=== PATIENT | female | born 1935 | race Caucasian/White ===

== ENCOUNTER 2016-05-12 07:23 | Inpatient (IN) | payer OTHER, MEDICAID ==
[~2016-05-12] VITALS: Ht 152.4 cm; Wt 79.4 kg
[2016-05-12 07:28] VITALS: BP 189/78
--- NOTE | 2016-05-12 07:28 | NUR ---
80/F BIBA FROM HOME C/O RIGHT FLANK PAIN X YESTERDAY. PT STATES STABBING PAIN NON RADIATING AT THIS TIME. DENIES N/V/D; SKIN IS PINK/WARM/DRY; AAOX4 AND UNSTEADY GAIT; LUNGS CLEAR BL; HR EVEN AND REGULAR; PT DENIES ANY FEVER, CP, SOB, OR COUGH AT THIS TIME; PATIENT STATES PAIN OF 8/10 AT THIS TIME; BP 189/78 AT THIS TIME; PATIENT POSITIONED FOR COMFORT; HOB ELEVATED; BEDRAILS UP X2; BED DOWN. ER MD MADE AWARE OF PT STATUS.
[2016-05-12] MEDS ORDERED: ORETIC25 MG PO (07:37)
[2016-05-12] MEDS ORDERED: TENORMIN25 MG PO (07:37)
[2016-05-12] MEDS ORDERED: ASPIRIN ADULT L81 M2 PO (07:37)
[2016-05-12] MEDS ORDERED: LISINOPRIL40 M1 PO (07:37)
[2016-05-12] MEDS ORDERED: NACL 0.9% 1,000 ML IV ONE (07:50)
[2016-05-12] MEDS ORDERED: KETOROLAC 30 MG/ML VIAL IVP ONE (07:55)
--- NOTE | 2016-05-12 08:00 | NUR ---
LAB AT BEDSIDE
--- NOTE | 2016-05-12 08:06 | NUR ---
PT TAKEN TO CT VIA [facility] ACCOMPANIED BY ABEL CARLOS.
[2016-05-12] MEDS ORDERED: NACL 0.9% 2,500 ML IV ONE (09:10)
[2016-05-12] MEDS ORDERED: LEVOFLOXACIN 500 MG/D5W PREMIX 100 ML IV ONE ×2 (10:15→10:20)
[2016-05-12] MEDS ORDERED: ONDANSETRON 4 MG/2 ML VIAL IVP PRN (10:15)
[2016-05-12] MEDS ORDERED: ACETAMINOPHEN 325 MG TAB PO PRN (10:15)
[2016-05-12] MEDS ORDERED: HYDROcodone/APAP 5/325 MG 1 TAB TAB PO PRN (10:15)
--- NOTE | 2016-05-12 10:35 | NUR ---
GAVE REPORT TO NELL SCHULTZ
--- NOTE | 2016-05-12 10:39 | NUR ---
Patient will be admitted to care of DR THACKER. Admited to [facility]. Will go to room 106 B. Belongings list completed. Report to NELL SCHULTZ.
[2016-05-12 10:50] VITALS: BP 173/73
--- NOTE | 2016-05-12 10:50 | NUR ---
ADMITTED FROM ER WITH C/O RIGHT FLANK PAIN Admitted from ER, with chief complaint of , 80 y/o ,Female, Cooperative, oriented to call light, bed, phone,television, bathroom, smoking policy, visiting hours, procedures, ID bracelet on. Belongings list checked. Addendum: 05/12/16 at 1316 by Daniel Pemberton RN INCORRECT ENTRY ABOVE CORRECT ENTRY: ADMITTED FROM ER WITH C/O RIGHT FLANK PAIN, NO N/V/D OR FEVER. DX STOMACH PAIN, R/O CHOLECYSTITIS, UTI. 80YO F, COOPERATIVE, AOX4, KYRGYZ SPEAKING ONLY. VS NOTED. NO S/S OF ACUTE DISTRESS. IV SITE ASYMPTOMATIC, PATENT AND INTACT, IV BOLUS INFUSING WELL. ADMISSION ASSESSMENT, HISTORY AND PLAN OF CARE DISCUSSED AND REVIEWED WITH PT THROUGH TRACTOR CRANE OPERATOR PHONE, [place], AND WITH PT AT BEDSIDE. PT VERBALIZES UNDERSTANDING. PT DENIES PAIN AT THIS TIME, PT REPORTS PAIN WITH ACTIVITY. PT ORIENTED TO CALL LIGHT, BED, PHONE, TELEVISION, BATHROOM, SMOKING POLICY, VISITING HOURS AND ID BRACELET ON. BELONGINGS LIST CHECKED. SAFETY MEASURES ENSURED.
[2016-05-12] MEDS ORDERED: HYDROCHLOROTHIAZIDE 25 MG TAB PO SCH (11:19)
[2016-05-12] MEDS ORDERED: ATENOLOL 25 MG TAB PO SCH (11:19)
[2016-05-12] MEDS ORDERED: LISINOPRIL 20 MG TAB PO SCH (11:19)
[2016-05-12] MEDS: NACL 0.9% 1,000 ML IV SCH ×2 (12:22→19:13)
--- NOTE | 2016-05-12 15:30 | NUR ---
DR DE SOUZA MADE AWARE OF CONSULTATION, STATES HE WILL SEE PATIENT TODAY.
[2016-05-12 16:00] VITALS: BP 152/84
--- NOTE | 2016-05-12 18:00 | NUR ---
PT TOLERATING DIET WELL. NO S/S DISTRESS.
--- NOTE | 2016-05-12 19:15 | NUR ---
ENDORSED PLAN OF CARE TO [employer]. CONDITION STABLE.
--- NOTE | 2016-05-12 19:30 | NUR ---
RECEIVED REPORT FROM EUGENIA/NELL SCHULTZ, AT BEDSIDE. INITIAL ASSESSMENT AND BODY CHECK DONE. PATIENT AAO X 4, ABLE TO FOLLOW COMMAND AND MAKE NEEDS KNOWN AND AMBULATORY. PATIENT CURRENTLY LYING DOWN ON THE BED AND TALKING TO HER . NO S/S OF DISTRESS OR SOB NOTED. SKIN WARM/DRY TO TOUCH WITH NORMAL COLOR AND INTACT. DENIED OF ABDOMINAL PAIN AT THIS TIME. DISCUSSED PLAN OF CARE, PAIN MANAGEMENT AND MEDICATION REGIMEN WITH PATIENT AND PATIENT VERBALIZED UNDERSTANDING. PLACED PATIENT ON SAFETY/FALL PRECAUTIONS AND WILL CONTINUE TO MONITOR. CALL LIGHT LEFT WITHIN REACH.
[2016-05-12 20:00] VITALS: BP 152/59
--- NOTE | 2016-05-12 20:10 | NUR ---
DR. DE SOUZA HERE TO SEE THE PATIENT AND NO NEW ORDER GIVEN.
[2016-05-12] MEDS: metroNIDAZOLE 500 MG/NS PREMIX 100 ML IV SCH (20:34)
--- NOTE | 2016-05-12 21:00 | NUR ---
ADMINISTERED DUE MEDICATIONS MD'S ORDERED WITH EDUCATION GIVEN. PATIENT COMPLYING WITH MEDICATIONS AND TOLERATED WELL. KEPT PATIENT IN COMFORTABLE POSITION/WARM AND WILL CONTINUE TO MONITOR.
--- NOTE | 2016-05-12 21:58 | NUR ---
ROUNDS MADE, SEEN PATIENT RESTING COMFORTABLY IN BED WITHOUT S/S OF DISTRESS NOTED. WILL CONTINUE TO MONITOR.
[2016-05-13] VITALS (7 sets, daily range): BP systolic 133–179; BP diastolic 64–81
--- NOTE | 2016-05-13 00:37 | NUR ---
ASSISTED PATIENT TO THE RESTROOM AND BACK TO BED SAFELY. PATIENT TOLERATED ACTIVITY WELL AND REMAINED IN STABLE CONDITION. NO ANY COMPLAINT MADE. WILL CONTINUE TO MONITOR.
--- NOTE | 2016-05-13 03:40 | NUR ---
PATIENT IS CLINICALLY STABLE AND NO APPARENT DISTRESS NOTED. WILL CONTINUE TO MONITOR.
[2016-05-13] MEDS: metroNIDAZOLE 500 MG/NS PREMIX 100 ML IV SCH ×3 (04:16→20:35)
--- NOTE | 2016-05-13 07:23 | NUR ---
ENDORSED PLAN OF CARE TO NELL SCHULTZ, AT BEDSIDE. PATIENT RESTED WELL THROUGHOUT THE SHIFT AND REMAINED IN STABLE CONDITION WITHOUT S/S OF DISTRESS NOTED.
--- NOTE | 2016-05-13 07:30 | NUR ---
RECEIVED REPORT FROM NIGHT NURSE. AOX4, PT SITTING IN BED. NO SOB, CHEST PAIN OR S/S OF DISTRESS. TOOTH CUTTER IN PLACE. IV SITE, ASYMPTOMATIC, PATENT AND INTACT. IV FLUIDS INFUSING WELL. PLAN OF CARE REVIEWED AND DISCUSSED WITH PT, VERBALIZES UNDERSTANDING SAFETY MEASURES ENSURED, CALL LIGHT WITHIN REACH. WILL CONTINUE TO MONITOR.
--- NOTE | 2016-05-13 07:32 | NUR ---
PATIENT HAS BEEN SCREENED AND CATEGORIZED MODERATE NUTRITION RISK. PATIENT WILL BE SEEN WITHIN 3-5 DAYS OF ADMISSION. 05/15/16-05/17/[address]
[2016-05-13] MEDS: ECOTRIN 81 MG TABEC PO SCH (08:31)
[2016-05-13] MEDS: LISINOPRIL 20 MG TAB PO SCH (08:32)
[2016-05-13] MEDS: ATENOLOL 25 MG TAB PO SCH (08:33)
[2016-05-13] MEDS: ATORVASTATIN 20 MG TAB PO SCH (08:34)
[2016-05-13] MEDS: HYDROCHLOROTHIAZIDE 25 MG TAB PO SCH (08:34)
[2016-05-13] MEDS: LEVOFLOXACIN 250 MG/D5 PREMIX 50 ML IV SCH (08:36)
--- NOTE | 2016-05-13 08:41 | NUR ---
PT SITTING IN BED COMFORTABLY. ADMINISTERED MEDICATIONS WITH EDUCATION, PT TOLERATED WELL. IV SITE INFUSING WELL. SAFETY MEASURES ENSURED.
[2016-05-13] MEDS ORDERED: NON-FORMULARY ITEM (Lisinopril 40 MG) PO SCH (09:00)
--- NOTE | 2016-05-13 09:10 | NUR ---
CT CHEST DONE, PT RETURNED TO ROOM IN STABLE CONDITION.
--- NOTE | 2016-05-13 13:20 | NUR ---
MEDICATION ADMINISTERED WITH MEDICATION, PT TOLERATED WELL. IV SITE INFUSING WELL. SAFETY MEASURES ENSURED.
--- NOTE | 2016-05-13 13:40 | NUR ---
INITIAL REVIEW FAXED TO [facility] [phone] PHONE ALEXX [phone]
[2016-05-13] MEDS: NACL 0.9% 1,000 ML IV SCH ×2 (14:48→18:12)
--- NOTE | 2016-05-13 18:00 | NUR ---
DISCUSSED AND REVIEWED PLAN OF CARE WITH PT, AT BEDSIDE; BOTH VERBALIZE UNDERSTANDING AND COMPLIANCE.
--- NOTE | 2016-05-13 19:30 | NUR ---
ENDORSED PLAN OF CARE TO OFFICE CLERK ROUTINE. CONDITION STABLE.
--- NOTE | 2016-05-13 19:30 | NUR ---
RECEIVED REPORT FROM NELL SCHULTZ, AT BEDSIDE. INITIAL ASSESSMENT AND BODY CHECK DONE. PATIENT AAO X 4, ABLE TO FOLLOW COMMAND AND MAKE NEEDS KNOWN AND AMBULATORY. PATIENT CURRENTLY SITTING UP ON THE BED. NO S/S OF DISTRESS OR SOB NOTED. SKIN WARM/DRY TO TOUCH WITH NORMAL COLOR AND INTACT. DENIED OF ANY PAIN/DISCOMFORT AT THIS TIME. DISCUSSED PLAN OF CARE, PAIN MANAGEMENT AND MEDICATION REGIMEN WITH PATIENT AND PATIENT VERBALIZED UNDERSTANDING. PLACED PATIENT ON SAFETY PRECAUTIONS AND WILL CONTINUE TO MONITOR. CALL LIGHT LEFT WITHIN REACH.
--- NOTE | 2016-05-13 21:35 | NUR ---
ADMINISTERED DUE MEDICATIONS MD'S ORDERED WITH EDUCATION GIVEN. PATIENT COMPLYING WITH MEDICATIONS AND TOLERATED WELL. RESTED COMFORTABLY IN BED WITH ALL NEEDS ATTENDED. WILL CONTINUE TO MONITOR.
--- NOTE | 2016-05-14 00:10 | NUR ---
ROUNDS MADE, SEEN PATIENT ASLEEP QUIETLY IN BED WITH EVEN AND UNLABORED RESPIRATORY RATE. NO CHANGE IN CONDITION NOTED. WILL CONTINUE TO MONITOR.
--- NOTE | 2016-05-14 02:04 | NUR ---
PATIENT RESTED WELL WITHOUT APPARENT DISTRESS NOTED. WILL CONTINUE TO MONITOR.
[2016-05-14 04:00] VITALS: BP 158/71
[2016-05-14] MEDS: metroNIDAZOLE 500 MG/NS PREMIX 100 ML IV SCH ×3 (04:26→13:00)
--- NOTE | 2016-05-14 04:56 | NUR ---
PATIENT IS CLINICALLY STABLE WITH UNCHANGED V/S. WILL CONTINUE TO MONITOR.
--- NOTE | 2016-05-14 07:12 | NUR ---
ENDORSED PLAN OF CARE TO NELL MINER, AT BEDSIDE. PATIENT REMAINED IN STABLE CONDITION AND NO APPARENT DISTRESS NOTED.
--- NOTE | 2016-05-14 07:13 | NUR ---
RECEIVED REPORT FROM NELL KAYE. PT IS SLEEPING AT THIS TIME BUT EASILY AWAKEN, AAO X4, SKIN INTACT IV ON LEFT HAND PATENT AND INTACT INFUSING FLUID WELL, INITIAL ASSESSMENT DONE, NO S/S OF RESPIRATORY DISTRESS OR DISCOMFORT NOTED, DISCUSSED PLAN OF CARE, PT VERBALIZED UNDERSTANDING, SAFETY/FALL PRECAUTION ENFORCED, CALL LIGHT WITHIN REACH, WILL CONTINUE TO MONITOR.
[2016-05-14 08:00] VITALS: BP 159/77
[2016-05-14] MEDS: HYDROCHLOROTHIAZIDE 25 MG TAB PO SCH (09:05)
[2016-05-14] MEDS: ECOTRIN 81 MG TABEC PO SCH (09:05)
[2016-05-14] MEDS: ATORVASTATIN 20 MG TAB PO SCH (09:05)
[2016-05-14] MEDS: LEVOFLOXACIN 250 MG/D5 PREMIX 50 ML IV SCH (09:05)
[2016-05-14] MEDS: ATENOLOL 25 MG TAB PO SCH (09:05)
[2016-05-14] MEDS: LISINOPRIL 20 MG TAB PO SCH (09:05)
--- NOTE | 2016-05-14 09:09 | NUR ---
DUE MEDS GIVEN, PT TOLERATED WELL, CALL LIGHT WITHIN REACH, FAMILY MEMBER AT BEDSIDE, WILL CONTINUE TO MONITOR.
--- NOTE | 2016-05-14 11:15 | NUR ---
PT IS RESTING ON BED TALKING TO FAMILY MEMBER AT BEDSIDE, ALL NEEDS MET AT THIS TIME, CALL LIGHT WITHIN REACH, WILL CONTINUE TO MONITOR.
[2016-05-14 12:00] VITALS: BP 149/73
--- NOTE | 2016-05-14 12:30 | NUR ---
DUE IVPB FLAGYL NOT GIVEN, CURRENT IV IS INFILTRATED AND PT REFUSED TO GET NEW IV, DR. BARBOZA MADE AWARE.
[2016-05-14] MEDS ORDERED: FLORASTOR250 MG PO (12:44)
[2016-05-14] MEDS ORDERED: ATORVASTATIN CA20 MG PO (12:44)
[2016-05-14] MEDS ORDERED: LEVAQUIN500 M1 PO (12:44)
--- NOTE | 2016-05-14 12:46 | NUR ---
CM NOTE CONCURRENT REVIEW FAXED TO [facility] / FAX# [phone], ATTN: ALEXX #[phone]
--- NOTE | 2016-05-14 14:40 | NUR ---
DISCHARGE INSTRUCTIONS AND PRESCRIPTION GIVEN, PT VERBALIZED UNDERSTANDING, REMOVED TELE, ID WRISTBAND AND IV, CATHETER TIP INTACT, ALL ANSWERS QUESTIONED. PT LEFT THE UNIT AMBULATING ACCOMPANIED BY SPOUSE, PT STABLE UPON DISCHARGE.
== END 2016-05-14 14:40 | disposition home or self-care (01) | DRG 444 ==
LOC: MED 07:23 → MTU 10:14
PROVIDERS: ADMIT Family Medicine; ATTEND Family Medicine
DX: K80.20 Calculus of gallbladder without cholecystitis without obstruction (principal); N17.0 Acute kidney failure with tubular necrosis; N39.0 Urinary tract infection, site not specified; E44.0 Moderate protein-calorie malnutrition; I16.0 Hypertensive urgency; E66.9 Obesity, unspecified; R91.1 Solitary pulmonary nodule; I10 Essential (primary) hypertension; E78.2 Mixed hyperlipidemia; D25.9 Leiomyoma of uterus, unspecified; Z68.34 Body mass index [BMI] 34.0-34.9, adult; Z79.82 Long term (current) use of aspirin; Z79.899 Other long term (current) drug therapy

== ENCOUNTER 2020-02-29 11:46 | Observation (INO) | payer OTHER, MEDICAID, SELFPAY ==
[~2020-02-29] VITALS: Ht 152.4 cm; Wt 49.9 kg
[~2020-02-29 11:46] MED LIST: ASPI-1856 PO; ATEN25TA7 PO; ATOR20TA40 PO; FLOR250 PO; HYDR-4004 PO; LEVO500T2 PO; LISI40TA8 PO
[2020-02-29 11:52] VITALS: BP 134/84
[2020-02-29 12:36] LABS: BASOPHILS % (AUTO) 0.5 % (0.0-2.0); EOSINOPHILS # (AUTO) 0.1 K/uL (0-0.4); EOSINOPHILS % (AUTO) 0.9 % (0.0-4.0); HEMATOCRIT 37.7 % (36-48); HEMOGLOBIN 12.3 g/dL (12.0-16.0); LYMPHOCYTES % (AUTO) 10.4 % (20.5-51.1); MEAN CORPUSCULAR HEMOGLOBIN 29 pg (27-31); MEAN CORPUSCULAR HGB CONC 33 g/dL (33-37); MEAN CORPUSCULAR VOLUME 89.3 fL (80-94); MONOCYTES # (AUTO) 0.4 K/uL (0.8-1.0); MONOCYTES % (AUTO) 4.8 % (1.7-9.3); NEUTROPHILS # (AUTO) 7.7 K/uL (1.8-7.7); NEUTROPHILS % (AUTO) 83.4 % (42.2-75.2); PLATELET COUNT (AUTO) 359 K/uL (140-450); RED BLOOD CELL COUNT(AUTO) 4.22 MIL/uL (4.20-5.40); RED CELL DISTRIBUTION WIDTH 14.2 % (11.6-13.7); WHITE BLOOD COUNT (AUTO) 9.2 K/uL (4.8-10.8)
[2020-02-29 12:51] LABS: ALBUMIN 2.3 g/dL (3.4-5.0); ASPARTATE AMINOTRANSFERASE 31 U/L (15-37); CHLORIDE 104 mmol/L (98-107); CREATININE 1.3 mg/dL (0.6-1.3); GLUCOSE 171 mg/dL (74-106); POTASSIUM 5.2 mmol/L (3.5-5.1); SODIUM SERUM 138 mmol/L (136-145); TOTAL BILIRUBIN 0.5 mg/dL (0.0-1.0); UREA NITROGEN, BLOOD 28 mg/dL (7-18)
[2020-02-29 12:57] LABS: PROTHROMBIN TIME 9.8 secs (10.8-13.4)
[2020-02-29 13:04] LABS: CARBON DIOXIDE 27.3 mmol/L (21-32)
[2020-02-29 13:38] LABS: APPEARANCE,URINE SL CLOUDY (CLEAR); BILIRUBIN,URINE NEGATIVE (NEGATIVE); BLOOD, URINE NEGATIVE (NEGATIVE); COLOR,URINE ORANGE (YELLOW); LEUKOCYTE ESTERASE ,URINE NEGATIVE (NEGATIVE); NITRITE, URINE POSITIVE (NEGATIVE); UGLUCOSE NEGATIVE (NEGATIVE)
[2020-02-29] MEDS ORDERED: NACL 0.9% 1,000 ML IV ONE (14:05)
[2020-02-29] MEDS ORDERED: cefTRIAXone 1,000 MG VIAL ONE (15:16)
[2020-02-29 15:56] LABS: FIBRINOGEN 277 mg/dL (200-400)
[2020-02-29 16:51] LABS: D-DIMER 938 ng/ml (0-400)
[2020-02-29] MEDS ORDERED: ONDANSETRON 4 MG/2 ML VIAL IVP PRN (17:30)
[2020-02-29] MEDS ORDERED: LEVOFLOXACIN 500 MG/D5W PREMIX 100 ML IV SCH ×2 (17:30→21:00)
[2020-02-29] MEDS: NACL 0.9% 1,000 ML IV SCH (19:00)
[2020-02-29 20:38] VITALS: BP 146/86
[2020-03-01] MEDS: NACL 0.9% 1,000 ML IV SCH (06:30)
[2020-03-01 06:31] LABS: BASOPHILS % (AUTO) 0.5 % (0.0-2.0); EOSINOPHILS # (AUTO) 0.1 K/uL (0-0.4); EOSINOPHILS % (AUTO) 1.8 % (0.0-4.0); HEMATOCRIT 36.1 % (36-48); LYMPHOCYTES # (AUTO) 1.1 K/uL (2.5-16.5); LYMPHOCYTES % (AUTO) 14.8 % (20.5-51.1); MEAN CORPUSCULAR HEMOGLOBIN 29 pg (27-31); MEAN CORPUSCULAR HGB CONC 33 g/dL (33-37); MONOCYTES # (AUTO) 0.5 K/uL (0.8-1.0); MONOCYTES % (AUTO) 6.5 % (1.7-9.3); NEUTROPHILS # (AUTO) 5.7 K/uL (1.8-7.7); NEUTROPHILS % (AUTO) 76.4 % (42.2-75.2); PLATELET COUNT (AUTO) 344 K/uL (140-450); RED CELL DISTRIBUTION WIDTH 14.2 % (11.6-13.7); WHITE BLOOD COUNT (AUTO) 7.5 K/uL (4.8-10.8)
[2020-03-01 06:55] LABS: CARBON DIOXIDE 25.5 mmol/L (21-32); CHLORIDE 103 mmol/L (98-107); CREATININE 1.1 mg/dL (0.6-1.3); GLUCOSE 88 mg/dL (74-106); POTASSIUM 3.5 mmol/L (3.5-5.1); SODIUM SERUM 136 mmol/L (136-145); UREA NITROGEN, BLOOD 21 mg/dL (7-18)
[2020-03-01] MEDS ORDERED: ENOXAPARIN 40 MG/0.4 ML SYR SUBQ SCH (09:00)
[2020-03-01] MEDS ORDERED: ENOXAPARIN 30 MG/0.3 ML SYR SUBQ SCH (09:00)
[2020-03-01 10:30] VITALS: BP 158/78
[2020-03-01 16:28] VITALS: BP 136/72
[2020-03-01 16:33] VITALS: BP 136/78
[2020-03-01 16:35] VITALS: BP 136/78
[2020-03-01] MEDS ORDERED: LEVOFLOXACIN 250 MG/D5 PREMIX 50 ML IV SCH (21:00)
== END 2020-03-01 17:00 | disposition home or self-care (01) ==
LOC: EDBD 11:46 → MED 11:46 → MERGE 17:29 → MMU 17:29
PROVIDERS: ADMIT Hospitalist; ATTEND Hospitalist
DX: R55 Syncope and collapse (principal); Z20.822 Contact with and (suspected) exposure to COVID-19; J18.9 Pneumonia, unspecified organism; N39.0 Urinary tract infection, site not specified; E11.9 Type 2 diabetes mellitus without complications; I10 Essential (primary) hypertension; E78.5 Hyperlipidemia, unspecified; Z79.899 Other long term (current) drug therapy; W18.39XA Other fall on same level, initial encounter; Y93.89 Activity, other specified; Y92.89 Other specified places as the place of occurrence of the external cause
CPT/HCPCS: 36415; 36600; 70450; 71045; 80048; 80053; 81003; 82550; 82803; 83605; 84484; 85025; 85379; 85384; 85610; 85730; 86140; 87040; 87081; 87426; 93005; 96361; 96365; 96367; 96372; 99285; G0378; J0696; J1650; J1956; J7030; J7060; U0003